=== PATIENT | male | born 1965 | race Caucasian/White ===

== ENCOUNTER 2016-12-07 14:25 | Observation (INO) ==
[2016-12-07] MEDS ORDERED: ALUM/MAG/SIMETH/LIDO VISC 1:1 30 ML BOTTLE PO STA (15:03)
[2016-12-07] MEDS ORDERED: METOPROLOL TARTRATE 5 MG/5 ML VIAL IV STA (15:03)
[2016-12-07] MEDS ORDERED: ASPIRIN 325 MG TABLET PO STA (15:03)
--- NOTE | 2016-12-07 15:07 | EKG Report ---
Stationary ECG Study 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
--- NOTE | 2016-12-07 15:09 | Emergency Department Note ---
Britton Zheng Manpreet, am scribing for, and in the presence of, Faisal Robert MD 15: 04. Yesica Zheng James D, MD, personally performed the services described in this documentation, ascribed by Aldair Jarquin in my presence, and it is both accurate and complete 507 . Arrival - Arrival Chief Complaint: Chest Pain Stated Complaint: chest pain ED Nursing Triage Note: c/o having chest pain x 5 days., denies having SOB., denies having nausea., denies having diaphreisis, states was told by dr. dawson to come to the ED ,EKG obtained at time of triage Mode of Arrival: Ambulatory Limitations: No Limitations Source: Patient, RN Notes Reviewed - History of Present Illness HPI Narrative: Pt is a 51 y/o male, with PMHx of HTN and HLD, who presents to the ED with CC of CP that began 5 days ago. Pt denies SOB, YAN, nausea, or diaphoresis. Pt was at Dr. Dawson's office, his PCP, and was told to come to ED for further evaluation. Pt states the CP is non-radiating and is intermittent. The pain gets better after eating and sleeping at night but is worse throughout the day. Pt's clinical lab specialist is Dr. Ramires in [place], [place], where he is from. No other pains/complaints reported to ED. Onset (ago): day(s) (5 days) Consistency: constant Allergies/Adverse Reactions: Allergies Allergy/AdvReac Type Severity Reaction Status Date / Time levofloxacin [From Levaquin] Allergy HIVES Verified 12/07/16 14:31 Home Medications: Home Medications Medication Instructions Recorded Confirmed Type Atorvastatin [Lipitor] 20 mg PO BEDTIME 12/07/16 12/07/16 History Clorazepate [Tranxene] 7.5 mg PO DAILY PRN 12/07/16 12/07/16 History Dicyclomine HCl 20 mg PO DAILY PRN 12/07/16 12/07/16 History Lisinopril [Lisinopril] 20 mg PO DAILY 12/07/16 12/07/16 History Nebivolol [Bystolic] 10 mg PO DAILY 12/07/16 12/07/16 History Omeprazole [Prilosec] 20 mg PO DAILY 12/07/16 12/07/16 History Review of System - Review of System 12 point system: reviewed and no additional remarkable complaints except as stated - Review of System Constitutional: Absent: chills, diaphoresis, fever, weakness Respiratory: Absent: cough, respiratory distress Cardiovascular: Present: chest pain. Absent: dyspnea on exertion Gastrointestinal: Absent: abdominal pain, nausea, vomiting Genitourinary male: Absent: dysuria Musculoskeletal: Absent: back pain Neurological: Absent: headache, weakness Medical,Surgical,& Family Hx - Medical History Cardio: History of: Hypertension Endocrine: History of: Dyslipidemia - Social History Smoking Status: Never smoker Frequency of Alcohol Use: Frequently Type of Drug Use: None Exam Vital Signs: Vital Signs Temperature 99.2 F 12/07/16 14:28 Pulse Rate 84 12/07/16 14:28 Respiratory Rate 18 12/07/16 14:28 Blood Pressure 153/82 12/07/16 14:28 O2 Sat by Pulse Oximetry 97 12/07/16 14:28 GENERAL: This is a well-nourished well-developed white male in no apparent distress. VITAL SIGNS: Reviewed HEENT: Head is atraumatic and normocephalic. Pupils are equal round react to light. Extraocular movements are intact. Oropharynx is benign with moist mucous membranes. NECK: Neck is soft and supple without tenderness. There are no masses. There is no lymphadenopathy. LUNGS: Lungs are clear to auscultation. Chest rises symmetrically. There is no chest wall tenderness. CV: Heart is regular rate and rhythm without murmurs rubs or gallops. ABDOMEN: Abdomen is soft, nontender to palpation. There are no abdominal abnormal masses palpated. There is no organomegaly. Bowel sounds are present and active. SKIN: Skin is warm and dry. No rash. EXTREMITIES: Patient has full range of motion without tenderness. There is no pedal edema. NEUROLOGIC: Awake alert and oriented 4. Cranial nerves II through XII are grossly intact. Motor is 5 over 5 in all extremities bilaterally. Course - Consultations Consultation #1: Discussed with hospitalist. Patient will be admitted to their service. Time: 16:14 Results - Labs CBC & BMP: 12/07/16 15:11 12/07/16 15:11 Lab Results: I have reviewed the patients labs Labs: Laboratory Tests 12/07/16 15:11 Troponin I < 0.015 - EKG EKG results: interpreted by ERMD - Impressions EKG: Normal sinus rhythm with a rate of 86, lateral ST depression and T-wave inversion, left axis deviation. - Diagnostic Findings Procedure: Chest x-ray: image reviewed by me (No cardiomegaly, no pleural effusions.) Disposition Clinical Impression: Chest pain, Family history of IHSS, Dyslipidemia, Essential hypertension Case discussed with: patient Condition: Stable
[2016-12-07 15:19] LABS: Basophils # 0.1 10*3/uL (0.0-0.2); Basophils % 0.6 % (0.0-0.8); Eosinophils # 0.1 10*3/uL (0.0-0.87); Eosinophils % 1.6 % (0.00-10.9); Hematocrit 47.2 VOL% (42.0-52.0); Hemoglobin 16.5 GM/DL (14.0-18.0); Immature Granulocytes % 0.5 %; Immature Granulocytes Absolute 0.04 #; Lymphocytes # 2.6 10*3/uL (1.4-4.0); Lymphocytes % 31.8 % (21.2-54.2); Mean Corpuscular Hemoglobin 30 PG (27-34); Mean Platelet Volume 9.7 FL (9.6-12.0); Monocytes # 1.1 10*3/uL (0.11-0.8); Monocytes % 13.6 % (1.7-12.7); Neutrophils # 4.3 10*3/uL (1.4-7.4); Neutrophils % 51.9 % (38.7-73.9); Platelet Count 204 T/CUMM (130-400); Red Blood Count 5.49 MC/CUMM (3.8-5.5); Red Cell Distribution Width 13.2 % (9.3-17.3); White Blood Count 8.3 T/CUMM (4-12)
[2016-12-07] MEDS ORDERED: ALUM/MAG/SIMETH/LIDO VISC 1:1 30 ML BOTTLE PO ONE (15:25)
[2016-12-07] MEDS ORDERED: METOPROLOL TARTRATE 5 MG/5 ML VIAL IV ONE (15:25)
[2016-12-07] MEDS ORDERED: ASPIRIN 325 MG TABLET ONE (15:25)
--- NOTE | 2016-12-07 15:27 | XRay Report ---
XR chest 2V Indication: Chest pain Comparison: None available Findings: The heart and mediastinum are normal in size and configuration. The pulmonary vascularity is normal in caliber. No lung infiltrates, effusions, pneumothorax or other abnormality is demonstrated. Impression: Normal chest x-ray PROCEDURE INTERPRETED AT [facility] DEPARTMENT OF RADIOLOGY Final Report Signed by: Dr. Vinicio Aragon
[2016-12-07 15:30] LABS: Partial Thromboplastin Time 32.2 SECS (0-40)
[2016-12-07 15:52] LABS: Albumin 4.2 G/DL (3.4-5.0); Bilirubin,Total 0.5 MG/DL (0.2-1.0); Calcium 8.8 MG/DL (8.5-10.1); Osmolality,Calculated 274.8 MOS/KG (273-304); Potassium 3.7 MMOL/L (3.5-5.1); Total Protein 7.8 G/DL (6.4-8.3)
[2016-12-07] MEDS ORDERED: ACETAMINOPHEN 325 MG TABLET PO PRN (17:43)
--- NOTE | 2016-12-07 18:05 | Hospitalist History & Physical ---
Assessment and Plan (1) Chest pain Status: Acute Assessment and plan: Pt. will be admitted to monitored bed. Serial cardiac enyzmes and serial ekgs. CBC/BMP in am. Order cardiac diet. NPO after midnight. Order GI studies. Current Visit: Yes (2) Dyslipidemia Status: Chronic Assessment and plan: Lipid panel in the a.m. Current Visit: Yes (3) Essential hypertension Status: Acute Assessment and plan: Blood pressure currently stable. Restart home medications. Current Visit: Yes History of Present Illness Chief complaint: chest pain History of present illness: Mr. Mares is a 51 year old white male with a history of GERD, hypertension and hyperlipidemia who presented to the ED with complaints of chest pain that started on last Thursday. Patient states that the symptoms began after his completion of doxycycline. Patient states that he was evaluated in his primary care provider's office today and instructed to report to the ED for further evaluation. Patient states that the pain is sharp. He denies shortness of breath, nausea, vomiting, or diaphoresis. He states that he gets better after eating and sleeping but it is worse throughout the day. He admits that when he eats he is able to feel the food go down and sometimes has radiation of pain into his left arm after eating. On examination in the ED, the patient points to the epigastric area when asked where he is pain is. Patient states that he is followed by Dr. Ramires in [facility]. 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 Patient has no other complaints in the ED at this time. CXR normal and initial cardiac enzymes are negative. Pt's case has been discussed with Dr. Robert and Dr. Silva and he will be admitted by the hospitalist service for further evaulation and treatment. Home Medications Medication Instructions Recorded Confirmed Type Atorvastatin [Lipitor] 20 mg PO BEDTIME 12/07/16 12/07/16 History Clorazepate [Tranxene] 7.5 mg PO DAILY PRN 12/07/16 12/07/16 History Dicyclomine HCl 20 mg PO DAILY PRN 12/07/16 12/07/16 History Lisinopril [Lisinopril] 20 mg PO DAILY 12/07/16 12/07/16 History Nebivolol [Bystolic] 10 mg PO DAILY 12/07/16 12/07/16 History Omeprazole [Prilosec] 20 mg PO DAILY 12/07/16 12/07/16 History Allergies Allergy/AdvReac Type Severity Reaction Status Date / Time levofloxacin [From Levaquin] Allergy HIVES Verified 12/07/16 14:31 Medical,Surgical,& Family Hx - Medical History Cardio: History of: Hypertension Endocrine: History of: Dyslipidemia - Social History Smoking Status: Never smoker Frequency of Alcohol Use: Frequently Type of Drug Use: None Marital Status: Lives With:: Spouse Functional capacity: independent ambulation - Constitutional Constitutional: Absent: chills, fever(s) - EENT Eyes: Absent: requires corrective lense Ears: Absent: decreased hearing - Cardiovascular Cardiovascular: Present: chest pain at rest, radiating jaw, neck or arm pain. Absent: dyspnea on exertion, edema, lightheadedness - Respiratory Respiratory: Absent: cough - Gastrointestinal Gastrointestinal: Present: abdominal pain - Genitourinary Genitourinary: Absent: difficulty urinating, hematuria, urinary frequency - Musculoskeletal Musculoskeletal: Absent: back pain - Neurological Neurological: Absent: headache(s) Exam - Constitutional Vitals: Period Temp Pulse Resp BP Sys/Calderon Pulse Ox Last 24 Hr 99.2 F 84 18 153/82 97 General appearance: no acute distress, over weight - Head Head exam: Present: normal inspection, normocephalic - Eye Eye exam: Present: EOMI Pupils: Present: FARAZ - Neck Neck exam: Present: normal inspection - Respiratory Respiratory exam: Present: clear to auscultation bilaterally. Absent: wheezes - Cardiovascular Cardiovascular exam: Present: regular rate and rhythm - GI/Abdominal GI/Abdominal exam: Present: normal bowel sounds, soft. Absent: tenderness - Extremities Exam Extremities exam: Present: normal capillary refill, full ROM. Absent: edema - Neurological Exam Neurological exam: Present: alert, oriented X3 - Psychiatric Psychiatric exam: Present: normal affect, normal mood - Skin Skin exam: Present: normal color, warm, dry Results - Labs CBC & BMP: 12/07/16 15:11 12/07/16 15:11 Lab Results: I have reviewed the past 24 hour labs
--- NOTE | 2016-12-07 18:25 | EKG Report ---
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
[2016-12-07] MEDS ORDERED: DICYCLOMINE 20 MG TABLET PO PRN (19:14)
[2016-12-07] MEDS ORDERED: traZODone 50 MG TABLET PO PRN (19:24)
[2016-12-07] MEDS: SODIUM CHLORIDE 0.9% 1,000 ML IV SCH (20:54)
[2016-12-07] MEDS ORDERED: ATORVASTATIN 20 MG TABLET PO SCH (21:00)
--- NOTE | 2016-12-08 02:18 | EKG Report ---
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
[2016-12-08 04:53] LABS: Basophils # 0.1 10*3/uL (0.0-0.2); Basophils % 0.6 % (0.0-0.8); Eosinophils # 0.2 10*3/uL (0.0-0.87); Hematocrit 43.8 VOL% (42.0-52.0); Hemoglobin 14.8 GM/DL (14.0-18.0); Immature Granulocytes % 0.6 %; Immature Granulocytes Absolute 0.05 #; Lymphocytes # 2.8 10*3/uL (1.4-4.0); Lymphocytes % 34.9 % (21.2-54.2); Mean Corpuscular HGB Conc 33.8 GM/DL (32-36); Mean Corpuscular Hemoglobin 29 PG (27-34); Mean Corpuscular Volume 86.9 FL (87-102); Mean Platelet Volume 10.4 FL (9.6-12.0); Monocytes % 12.3 % (1.7-12.7); Neutrophils # 3.9 10*3/uL (1.4-7.4); Neutrophils % 49.6 % (38.7-73.9); Platelet Count 183 T/CUMM (130-400); Red Blood Count 5.04 MC/CUMM (3.8-5.5); Red Cell Distribution Width 13.4 % (9.3-17.3); White Blood Count 7.9 T/CUMM (4-12)
[2016-12-08 05:28] LABS: Calcium 8.4 MG/DL (8.5-10.1); Magnesium 2.4 MG/DL (1.8-2.4); Osmolality,Calculated 282.3 MOS/KG (273-304); Potassium 4.1 MMOL/L (3.5-5.1); Risk Ratio 4.76; Thyroid Stimulating Hormone 1.87 uIU/ml (0.358-3.74)
[2016-12-08] MEDS: SODIUM CHLORIDE 0.9% 1,000 ML IV SCH (08:48)
[2016-12-08] MEDS ORDERED: LISINOPRIL 20 MG TABLET PO SCH (09:00)
[2016-12-08] MEDS ORDERED: NEBIVOLOL 10 MG TABLET PO SCH (09:00)
[2016-12-08] MEDS ORDERED: PANTOPRAZOLE 40 MG TABLET PO SCH (09:00)
--- NOTE | 2016-12-08 13:27 | Discharge Summary ---
Hospital Course - Hospital Course Hospital Course: Mr Mares was admitted to rule out [place] after presenting with chest pain which he felt was GI in origin. It was relieved with a GI cocktail. It is also relieved with eating. He thinks he has an ulcer. He reports frequent GI problems with reflux (he's on omeprazole OTC) and IBS. He sees a GI doctor in [place] and thinks he needs EGD which he told me he would like to have done here. Dr Estrada came to see him and Mr Mares at that time had decided to have it done at [place] so Dr Ramachandran has given him a prescription for Protonix to replace his omeprazole. 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 He has had extensive normal cardiac work up including echos and stress tests in [place]. 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 He requests discharge and as he would like to complete workup for the atypical chest pain as an outpatient in [place] he has acheived max benefit from this hospitalization and will be discharged today. He will follow up with Dr Dawson also his local PCP. - Time spent with patient Time with patient DS: Greater than 30 minutes (36 minutes in exam and evaulation , care coordination, medicine reconciliation, docuemtation) Diagnosis - Discharge Diagnosis (1) Family history of IHSS Status: Chronic (2) Dyslipidemia Status: Chronic (3) Essential hypertension Status: Chronic (4) Atypical chest pain Status: Resolved (5) Personal history of colonic polyps Status: Chronic (6) Guaiac positive stools Status: Acute Specialty Discharge - Follow Up or Referrals Follow up with: GI, in [place] [Other] (make an appointment for EGD) Jared Dawson MD [Physician] - 12/22/16 8:30 am Discharge Plan - Discharge Data Disposition: Disch To Home/Self Care Condition at Discharge: Stable Discharge Diet: advance to your usual diet (bland, small meals, avoid spicy foods), no caffiene Activity: resume usual activities as tolerated - Discharge Medications New Pantoprazole Tab [Protonix Tab] 40 mg PO DAILY tablet Continue Lisinopril 20 mg PO DAILY Clorazepate [Tranxene] 7.5 mg PO DAILY PRN PRN Reason: Anxiety Dicyclomine HCl 20 mg PO DAILY PRN PRN Reason: irritable bowel Nebivolol [Bystolic] 10 mg PO DAILY Atorvastatin [Lipitor] 20 mg PO BEDTIME Discontinued Omeprazole [Prilosec] 20 mg PO DAILY - Follow Up or Referral Follow Up: GI, in [place] [Other] (make an appointment for EGD) Jared Dawson MD [Physician] - 12/22/16 8:30 am - Forms/Instructions Instructions: Chest Pain (DC), Chronic Hypertension (DC) Exam - Constitutional Vitals: Period Temp Pulse Resp BP Sys/Calderon Pulse Ox Last 24 Hr 97.2 F-99.2 F 53-84 18-20 114-163/58-82 90-100 General appearance: no acute distress, over weight - Head Head exam: Present: normocephalic, atraumatic - Eye Eye exam: Present: EOMI. Absent: scleral icterus - Respiratory Respiratory exam: Present: clear to auscultation bilaterally - Cardiovascular Cardiovascular exam: Present: regular rate and rhythm. Absent: diastolic murmur , systolic murmur - GI/Abdominal GI/Abdominal exam: Present: normal bowel sounds, soft. Absent: tenderness - Extremities Exam Extremities exam: Absent: edema - Neurological Exam Neurological exam: Present: alert, oriented X3, CN II-XII intact. Absent: motor sensory deficit - Psychiatric Psychiatric exam: Present: normal affect, normal mood - Skin Skin exam: Present: normal color, dry Discharge Results Procedures and tests throughout hospitalization: Pending Orders 12/07/16 07:30 Helicobacter pylori Ag Feces Stat Occult Blood, Stool Routine 12/07/16 17:48 Urinalysis Stat Labs on day of discharge: Labs from last 24 hours 12/08/16 12/08/16 12/08/16 04:22 04:22 04:22 WBC RBC Hgb Hct MCV MCH MCHC RDW Plt Count MPV Neut % (Auto) Lymph % (Auto) [place] % (Auto) Eos % (Auto) Baso % (Auto) Neut # (Auto) Lymph # (Auto) [place] # (Auto) Eos # (Auto) Baso # (Auto) Immature Gran % Nucleated RBC % Immature Gran # Nucleated RBCs # INR PT Patient/Control Mix Circ Anticoag PTT Sodium 141 Potassium 4.1 Chloride 106 Carbon Dioxide 28 Anion Gap 11.1 BUN 17 Creatinine 0.70 GFR Calculation 141 BUN/Creatinine Ratio 24.00 H Glucose 100 Hemoglobin A1c 5.9 Calculated Osmolality 282.3 Calcium 8.4 L Magnesium 2.4 Total Bilirubin AST ALT Alkaline Phosphatase Troponin I Total Protein Albumin Globulin Albumin/Globulin Ratio Triglycerides 200 H Cholesterol 181 LDL Cholesterol 121.0 VLDL Cholesterol 40.0 HDL Cholesterol 38 L Heart Disease Risk Ratio 4.76 Lipase Free T4 0.93 TSH 3rd Generation 1.870 12/08/16 12/07/16 12/07/16 04:22 20:49 18:29 WBC 7.9 RBC 5.04 Hgb 14.8 Hct 43.8 MCV 86.9 L MCH 29 MCHC 33.8 RDW 13.4 Plt Count 183 MPV 10.4 Neut % (Auto) 49.6 Lymph % (Auto) 34.9 [place] % (Auto) 12.3 Eos % (Auto) 2.0 Baso % (Auto) 0.6 Neut # (Auto) 3.9 Lymph # (Auto) 2.8 [place] # (Auto) 1.0 H Eos # (Auto) 0.2 Baso # (Auto) 0.1 Immature Gran % 0.6 Nucleated RBC % 0.0 Immature Gran # 0.05 Nucleated RBCs # 0.00 INR PT Patient/Control Mix Circ Anticoag PTT Sodium Potassium Chloride Carbon Dioxide Anion Gap BUN Creatinine GFR Calculation BUN/Creatinine Ratio Glucose Hemoglobin A1c Calculated Osmolality Calcium Magnesium Total Bilirubin AST ALT Alkaline Phosphatase Troponin I < 0.015 < 0.015 Total Protein Albumin Globulin Albumin/Globulin Ratio Triglycerides Cholesterol LDL Cholesterol VLDL Cholesterol HDL Cholesterol Heart Disease Risk Ratio Lipase Free T4 TSH 3rd Generation 12/07/16 12/07/16 12/07/16 15:11 15:11 15:11 WBC 8.3 RBC 5.49 Hgb 16.5 Hct 47.2 MCV 86.0 L MCH 30 MCHC 35.0 RDW 13.2 Plt Count 204 MPV 9.7 Neut % (Auto) 51.9 Lymph % (Auto) 31.8 [place] % (Auto) 13.6 H Eos % (Auto) 1.6 Baso % (Auto) 0.6 Neut # (Auto) 4.3 Lymph # (Auto) 2.6 [place] # (Auto) 1.1 H Eos # (Auto) 0.1 Baso # (Auto) 0.1 Immature Gran % 0.5 Nucleated RBC % 0.0 Immature Gran # 0.04 Nucleated RBCs # 0.00 INR PT Patient/Control Mix Circ Anticoag PTT Sodium Potassium Chloride Carbon Dioxide Anion Gap BUN Creatinine GFR Calculation BUN/Creatinine Ratio Glucose Hemoglobin A1c Calculated Osmolality Calcium Magnesium Total Bilirubin AST ALT Alkaline Phosphatase Troponin I < 0.015 Total Protein Albumin Globulin Albumin/Globulin Ratio Triglycerides Cholesterol LDL Cholesterol VLDL Cholesterol HDL Cholesterol Heart Disease Risk Ratio Lipase 201.0 Free T4 TSH 3rd Generation 12/07/16 12/07/16 15:11 15:11 WBC RBC Hgb Hct MCV MCH MCHC RDW Plt Count MPV Neut % (Auto) Lymph % (Auto) [place] % (Auto) Eos % (Auto) Baso % (Auto) Neut # (Auto) Lymph # (Auto) [place] # (Auto) Eos # (Auto) Baso # (Auto) Immature Gran % Nucleated RBC % Immature Gran # Nucleated RBCs # INR 1.0 PT Patient/Control Mix 11.0 Circ Anticoag PTT 32.2 Sodium 137 Potassium 3.7 Chloride 102 Carbon Dioxide 28 Anion Gap 10.7 BUN 16 Creatinine 0.80 GFR Calculation 136 BUN/Creatinine Ratio 20.00 Glucose 121 H Hemoglobin A1c Calculated Osmolality 274.8 Calcium 8.8 Magnesium Total Bilirubin 0.50 AST 24 ALT 37 Alkaline Phosphatase 87 Troponin I Total Protein 7.8 Albumin 4.2 Globulin 3.6 H Albumin/Globulin Ratio 1.1 Triglycerides Cholesterol LDL Cholesterol VLDL Cholesterol HDL Cholesterol Heart Disease Risk Ratio Lipase Free T4 TSH 3rd Generation DS: Provider Date of admission: 12/07/16 17:13 Primary care physician: . No PCP Attending physician on admission: Manny Mendiola MD Consults: 12/08/16 11:23 Consult to Physician [CONS] Routine Comment: Consulting Provider: Feliberto Estrada Discharging clinician: Bibiana Zepeda MD
--- NOTE | 2016-12-08 13:29 | Gastrointestinal Consult Note ---
Assessment and Plan (1) Left upper quadrant pain Status: Acute Assessment and plan: Patient has left upper quadrant and some mild epigastric tenderness to palpation and is the main complaint for his arrival here. He does not take prescribed proton pump inhibitors but likely will need these due to recent course of doxycycline which is extremely caustic and is likely resulted in erosive gastritis and possibly peptic ulcer disease in his stomach. He is not having dysphagia and I do not suspect pill esophagitis. Certainly the erosions in the stomach could result in his positive guaiac in the stool. This patient has had recent upper and lower endoscopy done in the last year by Dr. Jose Lebron of [facility]. The patient states that he is happy with Dr. Lebron and will be following up with him in the future concerning his previous polyp and need for future endoscopy. He has seen his physician as recently as 3 months ago. Given the atypical chest pain and recent findings on endoscopy I am going to go ahead and write him a prescription for his Protonix twice daily dosing and the patient can follow-up with Dr. Lebron at his leisure. He was reminded that he can use Nexium 22 mg [id number] and simply double up on this dose if he runs out of the pantoprazole, taking this prior to suppertime each night. Again any refills that he requires these medications can be addressed by Dr. Lebron in the future. Current Visit: Yes (2) Atypical chest pain Status: Acute Assessment and plan: Again this may be secondary to erosive esophagitis versus nonerosive esophagitis versus pill esophagitis with the doxycycline versus esophageal spasm. Not much was seen on endoscopy within the last year. The patient will be taking acid blocking medication to see if this sensation cannot be suppressed. Current Visit: Yes (3) Personal history of colonic polyps Status: Acute Assessment and plan: The patient had a adenoma discovered approximately 1 year ago and requires a repeat colonoscopy in 4 years--he will be following up with his [place] [facility] physician for this. Current Visit: Yes (4) Guaiac positive stools Status: Acute Assessment and plan: This is likely due to the patient's erosions in the stomach secondary to recent completion of doxycycline use. Use of pantoprazole 40 mg p.o. twice daily should help this heal quicker. Refill 3 were written but the patient will need follow-up ultimately with his GI physician in [place]. Current Visit: Yes History of Present Illness Chief complaint: Left upper quadrant pain, atypical chest pain History of present illness: Mr. Mares is a 51 year old male who has been following up with a [employer] supervisor by the name Jose Lebron and has had both EGD and colonoscopy done the last year or so. He does not recall being told anything unusual about the upper endoscopy and was not placed on any acid blocking medications but finds that he requires at least omeprazole on a daily basis in order to suppress his acidity. He states that the omeprazole does not always work. He also has been told that he has a polyp on his last colonoscopy done again approximately 1 year ago and that this was a adenoma and would require repeat colonoscopy in 5 years. Patient has been taking doxycycline and this likely has produced some erosive gastritis in the stomach given the amount of severe pain that he has been having in his left upper quadrant and epigastric region. He has some mild atypical type chest pain but thinks that this is associated with his reflux. He has been observed over the evening here in the hospital and is now being allowed to be go home. He is in town from [place] in association with [employer]. He has not noticed any melena or bright red blood per rectum. His hematocrit is 43.2, he does not have any nausea or vomiting. Patient states that he does have a history of diverticulitis in the past and has had a diagnosis of IBS made as well. Home Medications Medication Instructions Recorded Confirmed Type Atorvastatin [Lipitor] 20 mg PO BEDTIME 12/07/16 12/07/16 History Clorazepate [Tranxene] 7.5 mg PO DAILY PRN 12/07/16 12/07/16 History Dicyclomine HCl 20 mg PO DAILY PRN 12/07/16 12/07/16 History Lisinopril [Lisinopril] 20 mg PO DAILY 12/07/16 12/07/16 History Nebivolol [Bystolic] 10 mg PO DAILY 12/07/16 12/07/16 History Pantoprazole Tab [Protonix Tab] 40 mg PO DAILY tablet 12/08/16 Rx Allergies Allergy/AdvReac Type Severity Reaction Status Date / Time levofloxacin [From Levaquin] Allergy HIVES Verified 12/07/16 14:31 Medical,Surgical,& Family Hx - Medical History Cardio: History of: Hypertension Endocrine: History of: Dyslipidemia - Social History Smoking Status: Never smoker Frequency of Alcohol Use: Frequently Type of Drug Use: None Review of systems: Constitutional: Denies fever, chills, nausea, and vomiting Eyes: Denies dry eyes, and scleral icterus HENT: Denies headaches Cardiovascular: He does admit to some recent acute chest pain but no claudication Respiratory: Denies shortness of breath, wheezing, and difficulty breathing, denies cough Gastrointestinal: As noted in the HPI Genitourinary: Denies dysuria and hematuria Neurologic: Denies vision loss, and loss of sensation Musculoskeletal: Denies joint swelling, but does have some joint stiffness, and muscular weakness Psychiatric: Denies depression and ronal symptoms Heme-Lymph: Denies easy bruising, lymph node enlargement or tenderness, night sweats, excessive bleeding Allergies-immunologic: Denies pruritus and rhinorrhea Exam - Constitutional Vitals: Period Temp Pulse Resp BP Sys/Calderon Pulse Ox Last 24 Hr 97.2 F-99.2 F 53-84 18-20 114-163/58-82 90-100 General appearance: no acute distress Exam: Constitutional: Well-developed, well-nourished, alert, and in no acute distress Head and face: Head: Normocephalic atraumatic Eyes: Conjunctiva without injection, no gross scleral icterus, pupils equal and round bilaterally Ears: Intact to conversation in both ears Nose: External appearance is normal, nares patent Mouth: Oral mucous membranes moist without erythema dentition noted to be without erosion Neck: Normal appearance, no masses or tenderness, trachea midline Thyroid: Gland midline and appropriate size for age Respiratory: Normal respiratory effort, clear to auscultation without wheezes, rhonchi or rales Cardiovascular: Regular rate and rhythm, normal S1, S2, the exam is without rubs, murmurs or gallops. Gastrointestinal: Mild left upper quadrant tenderness to palpation, normal active bowel sounds, tone normal without rigidity or guarding, no masses present , no hepatomegaly, no spleen tip felt. No rectal exam obtained, but stool guaiac noted to be 1+ for blood. Lymphatic: Neck without adenopathy, axilla without lymphadenopathy present Musculoskeletal: Right and left lower extremities without evidence of edema Skin and subcutaneous tissue: No rashes or ulcerations noted, normal skin turgor, digits and nails without clubbing/cyanosis/deformities. Neurologic: The patient is grossly oriented to person place and time, cranial nerves show tongue movements are normal with normal tongue extrusion midline, light touch sensation is intact. Psychiatric: No hallucinations or delusions are present, does not appear depressed Results - Labs CBC & BMP: 12/08/16 04:22 12/08/16 04:22 Specialty Discharge - Follow Up or Referrals Follow up with: GI, in [place] [Other] (make an appointment for EGD) Jared Dawson MD [Physician] - 1 Week
[2016-12-08 16:35] VITALS: BP 135/70
== END 2016-12-08 14:00 | disposition home or self-care (01) ==
LOC: N.EDINP 14:25 → N.ED 14:25 → SUATTDRO 17:13 → N.EDINP 18:48 → N.TELES 19:13
PROVIDERS: ADMIT Family Medicine; ATTEND Internal Medicine